=== PATIENT | male | born 1980 | race Caucasian/White ===

== ENCOUNTER → 2023-12-26 | Outpatient (CLI) | payer BC ==
[2023-12-26 13:41] VITALS: BP 144/91; PULSE 84; RESP 16; TEMP 98
--- NOTE | 2023-12-26 17:35 | P.SLEEP ---
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 He works between 11 PM and 7 AM in the morning. He lives in [place] and the patient's sleep is between 11 AM and 4:30 PM. Does not take any naps during the day. He is averaging around 5 hours of sleep. There is concern for sleep apnea as the patient reports snoring, at times, very loud and he is felt that his uvula has been swollen occurring several times at night making him wake up in the middle of the night. His throat gets sore and uvula gets irritated probably if there is loud snoring. Despite those symptoms, he has been able to maintain adequate functionality on the job. Does not fall asleep while driving although he has felt quite drowsy and at times struggled on his way back home after he gets out of work. No issues with insomnia. Denies having any episodes of waking up choking or gasping for air. No grinding of the teeth. No sleepwalking. No sleep paralysis. No hallucinations. No cataplexy. Occasional heartburn while awake. His weight has been essentially stable with probably 5 pounds weight gain over the past 1 year. His current Kimberton score is at 13. He prefers to sleep on his left. He is a nose breather. No personal history of obstructive sleep apnea. No other medical comorbidities and the patient has been essentially healthy. No major surgeries. No drug intake. No smoking. No alcohol consumption other than some consumption in moderation. No substance abuse. No morning headaches. No seizure activity. Review of Systems Constitutional: Reports daytime sleepiness, Reports fatigue Eyes: denies as per HPI, denies blurred vision, denies bulging eye, denies decreased vision, denies diplopia, denies discharge, denies dry eye, denies irritation, denies itching, denies pain, denies photophobia, denies loss of peripheral vision, denies loss of vision, denies tunnel vision/blind spots Ears: deny: decreased hearing, ear discharge, earache, tinnitus Ears, nose, mouth and throat: Reports as per HPI Breasts: absent: as per HPI, gynecomastia Cardiovascular: Reports as per HPI Respiratory: Reports snoring Gastrointestinal: Reports as per HPI Genitourinary: Reports as per HPI Musculoskeletal: Reports as per HPI Musculoskeletal: absent: ankle pain, ankle stiffness, ankle swelling, as per HPI, elbow pain, elbow stiffness, elbow swelling, foot pain, foot stiffness, foot swelling, hand pain, hand stiffness, hand swelling, hip pain, hip stiffness, hip swelling, knee pain, knee stiffness, knee swelling, shoulder pain, shoulder stiffness, shoulder swelling, wrist pain, wrist stiffness, wrist swelling Integumentary: Reports as per HPI Neurological: Reports as per HPI Psychiatric: Reports as per HPI Endocrine: Reports as per HPI, Reports fatigue Hematologic/Lymphatic: Reports as per HPI Allergic/Immunologic: Reports as per HPI Past Medical History History of Any Multi-Drug Resistant Organisms: None Reported Additional Past Surgical History / Comment(s): [place] tooth, left wrist surgery Past Psychological History: No Psychological Hx Reported Smoking Status: Former smoker Past Alcohol Use History: Occasional Past Drug Use History: None Reported - Past Family History Brother(s) Family Medical History: CVA/TIA Additional Family Medical History / Comment(s): Mother with COPD Physical Exam Vitals: Vital Signs Temp Pulse Resp BP Pulse Ox 12/26/23 13:26 98 F 84 16 144/91 97 Intake and Output 12/26/23 12/26/23 12/26/23 06:59 14:59 22:59 Other: Weight 93.894 kg The patient appeared well nourished and normally developed. Vital signs as documented. Head exam is unremarkable. No scleral icterus or corneal arcus noted. Neck is without jugular venous distension, thyromegaly, or carotid bruits. The patient has a redundant uvula. Mallampati class I. Carotid upstrokes are brisk bilaterally. Lungs are clear to auscultation and percussion. Cardiac exam reveals the PMI to be normally sized and situated. Rhythm is regular. First and second heart sounds normal. No murmurs, rubs or gallops. Abdominal exam reveals normal bowel sounds, no masses, no organomegaly and no aortic enlargement. Extremities are nonedematous and both femoral and pedal pulses are normal. Examination of the skin revealed no evidence of significant rashes, suspicious appearing nevi or other concerning lesions. Neurologically, the patient is awake and alert and the patient does not have any focal neuro logical deficit. Cranial nerves are essentially intact. Assessment and Plan Plan: Snoring with symptoms of chronic fatigue and sleepiness, rule out underlying obstructive sleep apnea. 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 Plan Will proceed with a screening polysomnography. This will be daytime study. Will make further recommendations based on the results of sleep study and offer treatment if needed. Would like the patient to extend sleep hours to an average of 6 to 7 hours if possible. He needs to go to bed early on those days when he does after no shift. No other major comorbidities. Will continue to follow. Sleep Note - Sleep Data ESS Total: 13 - Sleep Note Sleep Note: Temperature: 98 F Pulse Rate: 84 Respiratory Rate: 16 Blood Pressure: 144/91 SpO2: 97 Height: 5 ft 10.7 in Weight: 93.894 kg BMI: Neck Circumference: 18
== END ==
LOC: 3 N SLEEP 13:11
PROVIDERS: ATTEND Internal Medicine Critical Care Medicine
DX: R06.83 Snoring (principal); R53.82 Chronic fatigue, unspecified; G47.10 Hypersomnia, unspecified; G47.26 Circadian rhythm sleep disorder, shift work type; Z87.891 Personal history of nicotine dependence
CPT/HCPCS: 99202

== ENCOUNTER → 2024-02-21 | Outpatient (CLI) | payer BC ==
--- NOTE | 2024-03-03 21:35 | P.PCN ---
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 He works between 11 PM and 7 AM in the morning. He lives in [place] and the patient's sleep is between 11 AM and 4:30 PM. Does not take any naps during the day. He is averaging around 5 hours of sleep. There is concern for sleep apnea as the patient reports snoring, at times, very loud and he is felt that his uvula has been swollen occurring several times at night making him wake up in the middle of the night. His throat gets sore and uvula gets irri tated probably if there is loud snoring. Despite those symptoms, he has been able to maintain adequate functionality on the job. Does not fall asleep while driving although he has felt quite drowsy and at times struggled on his way back home after he gets out of work. No issues with insomnia. Denies having any episodes of waking up choking or gasping for air. No grinding of the teeth. No sleepwalking. No sleep paralysis. No hallucinations. No cataplexy. Occasional heartburn while awake. His weight has been essentially stable with probably 5 pounds weight gain over the past 1 year. His current Endeavor score is at 13. He prefers to sleep on his left. He is a nose breather. No personal history of obstructive sleep apnea. No other medical comorbidities and the patient has been essentially healthy. No major surgeries. No drug intake. No smoking. No alcohol consumption other than some consumption in moderation. No substance abuse. No morning headaches. No seizure activity Pertinent physical findings Body mass index is 29.1. Weight is 93 kg Technical description The [employer] system was used to conduct this home sleep study. Is a type III home sleep study. The total recording duration was 7 hours and 17 minutes. The study started at 8:52 AM and ended at 4:09 PM. There was more than 7 hours of flow and oxygen saturation monitoring throughout the sleep study Results Respiratory analysis showed a total of 224 obstructive apneas and 119 obstructive hypopneas. The resulting AHI was 59.6 consistent with severe obstructive sleep apnea Oxygenation analysis The baseline pulse ox while awake was 97%, average pulse ox during sleep was 93% with a minimum pulse ox of 79%. 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 The patient would benefit from CPAP therapy and the patient will be asked to come in sleep center to undergo an in lab CPAP titration.
== END ==
LOC: 3 N SLEEP 10:50
PROVIDERS: ATTEND Internal Medicine Critical Care Medicine
DX: G47.33 Obstructive sleep apnea (adult) (pediatric) (principal); G47.36 Sleep related hypoventilation in conditions classified elsewhere